=== PATIENT | female | born 2000 | race Caucasian/White ===

== ENCOUNTER 2024-01-01 14:17 | Emergency (ER) | payer BC ==
[2024-01-01] MEDS ORDERED: NA CHLORIDE 0.9% 1,000 ML ONE (14:49)
[2024-01-01 14:56] LABS: Absolute Eosinophils 0.2 K/uL (0-0.5); Absolute Lymphocytes (CBC) 1.7 K/uL (0.7-4.9); Absolute Monocytes 0.6 K/uL (0.1-1.3); Absolute Neutrophil 4.4 K/uL (1.8-8.0); Basophils % 0.7 % (0-1.3); Eosinophils % 2.5 % (0-4.4); Hematocrit 34.2 % (36.0-45.0); Hemoglobin 11.3 g/dL (12.0-15.0); Lymphocytes % 24.3 % (15.3-44.8); MCH 29.4 pg (27.0-35.0); MPV 8.2 fL (7.6-11.3); Monocytes % 9.2 % (3.3-12.3); Neutrophils % 63.3 % (41.7-73.7); Nucleated Red Blood Cells % 0.1 % (0-0); Platelets 286 thou/uL (152-406); RBC Red Blood Cell Count 3.85 M/uL (3.86-4.86); Red Cell Distribution Width 13.9 % (12.1-15.2)
--- NOTE | 2024-01-01 15:26 | RAD REPORT ---
EXAM DESCRIPTION: RAD - Chest Single View - 01/01/2024 3:18 pm CLINICAL HISTORY: CHEST PAIN Chest pain. COMPARISON: <Comparisons> FINDINGS: Portable technique limits examination quality. The lungs are grossly clear. The heart is normal in size. No displaced fractures. IMPRESSION: No acute intrathoracic process suspected.
[2024-01-01 15:36] LABS: ALT/SGPT 19 U/L (13-56); Albumin 3.8 g/dL (3.4-5.0); Alkaline Phosphatase 57 U/L (45-117); Anion Gap 7.7 mEq/L (5.0-15.0); BUN Blood Urea Nitrogen 13 mg/dL (7-18); Bicarbonate 26 mEq/L (21-32); Bilirubin Total 0.4 mg/dL (0.2-1.0); Globulin 3.7 g/dL (2.3-3.5); Glomerular Filtration Rate 123 ml/min (=/>90); Glucose Level 95 mg/dL (74-106); Magnesium 1.8 mg/dL (1.6-2.4); Potassium 3.7 mEq/L (3.5-5.1); Protein, Total 7.5 g/dL (6.4-8.2); Sodium Level 138 mEq/L (136-145); Troponin High Sensitivity 3.6 pg/mL (<58.9)
[2024-01-01 15:38] LABS: AST/SGOT < 10 U/L (15-37); Bilirubin Direct < 0.2 mg/dL (0-0.2); Bilirubin Indirect, Calculated 0.2 mg/dL (0.2-0.8)
--- NOTE | 2024-01-01 16:08 | EDPHYS ---
Physician Documentation [facility] Name: Denise Apodaca Age: 23 yrs Sex: Female : 2000 Arrival Date: 01/01/2024 Time: 14:17 Bed 18 Private MD: ED Physician Mark Castellon HPI: 12/31 15:12 This 23 yrs old Female presents to ER via EMS with complaints of Palpitations, rt Dizziness. 15:12 Patient presents to the ED with palpitations starting yesterday. She does have a rt history of POTS. Patient had chest pain since yesterday as well. She called EMS, she apparently had a syncopal event in the back of the ambulance. No reported head trauma. Reports that the symptoms continued, denies other acute complaints at this time, symptoms are moderate in severity, no other aggravating or elevating factors.. 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 - Infectious Disease History:: Denies. - Social history:: Smoking status: Patient reports the use of cigarette tobacco products, denies chronic smoking, but will smoke occasionally. - Family history:: not pertinent. ROS: 15:12 Constitutional: Negative for fever, chills, and weight loss, Respiratory: Negative for rt shortness of breath, cough, wheezing, and pleuritic chest pain, Abdomen/GI: Negative for abdominal pain, nausea, vomiting, diarrhea, and constipation, MS/Extremity: Negative for injury and deformity, Skin: Negative for injury, rash, and discoloration, 15:12 Cardiovascular: Positive for chest pain, palpitations, 15:12 Neuro: Positive for dizziness, syncope, Exam: 15:12 Constitutional: This is a well developed, well nourished patient who is awake, alert, rt and in no acute distress. Head/Face: Normocephalic, atraumatic. Chest/axilla: Normal chest wall appearance and motion. Nontender with no deformity. No lesions are appreciated. Cardiovascular: Regular rate and rhythm with a normal S1 and S2. No gallops, murmurs, or rubs. Normal PMI, no JVD. No pulse deficits. Respiratory: Lungs have equal breath sounds bilaterally, clear to auscultation and percussion. No rales, rhonchi or wheezes noted. No increased work of breathing, no retractions or nasal flaring. Abdomen/GI: Soft, non-tender, with normal bowel sounds. No distension or tympany. No guarding or rebound. No evidence of tenderness throughout. Skin: Warm, dry with normal turgor. Normal color with no rashes, no lesions, and no evidence of cellulitis. MS/ Extremity: Pulses equal, no cyanosis. Neurovascular intact. Full, normal range of motion. Neuro: Awake and alert, GCS 15, oriented to person, place, time, and situation. Cranial nerves II-XII grossly intact. Motor strength 5/5 in all extremities. Sensory grossly intact. Cerebellar exam normal. Normal gait. 15:12 ECG was reviewed by the Attending Physician. Vital Signs: 14:20 BP 104 / 76; Pulse 81; Resp 16; Temp 97.9; Pulse Ox 100% ; Weight 43.09 kg; Height 5 me1 ft. 3 in. ; Pain 0/10; 14:20 Body Mass Index 16.83 (43.09 kg, 160.02 cm) me1 14:20 Pain Scale: Adult me1 MDM: 14:25 Patient medically screened. rt 16:08 Differential diagnosis: POTS, dysrhythmia, electrolyte disturbance. Data reviewed: rt vital signs, nurses notes, lab test result(s), EKG, radiologic studies. Consideration of Admission/Observation Escalation of care including admission/observation considered. Stable vital signs, labs are benign, EKG is unremarkable, no indications for admission at this time.. I considered the following discharge prescriptions or medication management in the emergency department Medications were administered in the Emergency Department. See MAR. Independent interpretation of the following test(s) in the Emergency Department X-Ray: My interpretation is No pneumonia seen on interpretation of x-ray images. Test considered but Not performed: CT: PE RC negative, low suspicion for pulmonary embolus, CT angiogram not decayed. Care significantly affected by the following chronic conditions: POTS. Counseling: I had a detailed discussion with the patient and/or guardian regarding the historical points, exam findings, and any diagnostic results supporting the discharge/admit diagnosis, lab results, radiology results, the need for outpatient follow up, to return to the emergency department if symptoms worsen or persist or if there are any questions or concerns that arise at home. Response to treatment: the patient's symptoms have markedly improved after treatment. 12/31 14:33 Order name: Basic Metabolic Panel; Complete Time: 15:44 rt 12/31 14:33 Order name: CBC with Diff; Complete Time: 15:26 rt 12/31 14:33 Order name: LFT's; Complete Time: 15:44 rt 12/31 14:33 Order name: Magnesium; Complete Time: 15:44 rt 12/31 14:33 Order name: Troponin HS; Complete Time: 15:44 rt 12/31 14:33 Order name: TSH; Complete Time: 15:44 rt 12/31 14:33 Order name: XRAY Chest (1 view); Complete Time: 15:26 rt 12/31 14:33 Order name: EKG; Complete Time: 14:34 rt 12/31 14:33 Order name: Cardiac monitoring; Complete Time: 16:19 rt 12/31 14:33 Order name: EKG - Nurse/Tech rt 12/31 14:33 Order name: IV Saline Lock; Complete Time: 14:50 rt 12/31 14:33 Order name: Labs collected and sent; Complete Time: 14:50 rt 12/31 14:33 Order name: O2 Per Protocol; Complete Time: 14:50 rt 12/31 14:33 Order name: O2 Sat Monitoring; Complete Time: 14:50 rt EC:12 Rate is 76 beats/min. Rhythm is regular, Normal Sinus Rhythm with No ectopy. QRS [place] rt is Normal. [place] interval is normal. QRS interval is normal. QT interval is normal. No Q waves. T waves are Normal. No ST changes noted. Administered Medications: 14:57 Drug: NS 0.9% IV 1000 ml IV at 1 bolus Per protocol; 1000 mL bolus may finish EMS bag me1 Route: IV; Rate: 1 bolus; Site: right antecubital; Disposition Summary: 01/01/24 16:07 Discharge Ordered Notes: Location: Home rt Problem: new rt Symptoms: have improved rt Condition: Stable rt Diagnosis - Chest pain, unspecified rt - Palpitations rt - Syncope rt Followup: rt - With: Janes Reddy MD - When: 2 - 3 days - Reason: Discharge Instructions: - Discharge Summary Sheet rt - Nonspecific Chest Pain, Adult rt - Palpitations rt Forms: - Medication Reconciliation Form rt - Antibiotic Education rt - Prescription Opioid Use rt - Patient Portal Instructions rt - Leadership Thank You Letter rt Signatures: Dispatcher [employer] Mark Avitia MD MD rt Taylor Valentin, RN RN me1
--- NOTE | 2024-01-01 16:08 | ER ---
Nurse's Notes [facility] Name: Denise Apodaca Age: 23 yrs Sex: Female : 2000 Arrival Date: 01/01/2024 Time: 14:17 Bed 18 Private MD: Diagnosis: Chest pain, unspecified;Palpitations;Syncope Presentation: 12/31 14:20 Chief complaint: EMS states: toned out for palpitations. c/o dizziness and near me1 syncopal episode in ambulance on the way. 20g LAC with about 200 ml of NS administered. Hypotensive with SBP in 90s. improved to 106/69. Coronavirus screen: Vaccine status: Patient reports being unvaccinated. Ebola Screen: No symptoms or risks identified at this time. Initial Sepsis Screen: Does the patient meet any 2 criteria? No. Patient's initial sepsis screen is negative. Does the patient have a suspected source of infection? No. Patient's initial sepsis screen is negative. Risk Assessment: Do you want to hurt yourself or someone else? Patient reports no desire to harm self or others. Onset of symptoms was January 01, 2024. Care prior to arrival: Medication(s) given: Normal saline infusion, 200 ml IV initiated. 20 GA, in the right antecubital area. 14:20 Method Of Arrival: EMS [facility] [place] [place] 14:20 Acuity: WILLIS 3 me1 Triage Assessment: 14:23 General: Appears comfortable, unkempt, well developed, well nourished, Behavior is me1 calm, cooperative, appropriate for age, Reports c/o palpitations, dizziness, near syncope. Pain: Denies pain. EENT: No signs and/or symptoms were reported regarding the EENT system. Neuro: Level of Consciousness is awake, alert, obeys commands, Oriented to person, place, time, situation, Appropriate for age. Neuro: Reports dizziness, a syncopal episode. Cardiovascular: Patient's skin is warm and dry. Cardiovascular: Reports palpitations. Respiratory: Airway is patent Respiratory effort is even, unlabored, Respiratory pattern is regular, symmetrical. GI: No signs and/or symptoms were reported involving the gastrointestinal system. : No signs and/or symptoms were reported regarding the genitourinary system. Derm: Skin is intact, is healthy with good turgor, Skin is pink, warm \T\ dry. Musculoskeletal: No signs and/or symptoms reported regarding the musculoskeletal system. 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 - Infectious Disease History:: Denies. - Social history:: Smoking status: Patient reports the use of cigarette tobacco products, denies chronic smoking, but will smoke occasionally. - Family history:: not pertinent. Screenin:26 [facility] ED Fall Risk Assessment (Adult) History of falling in the last 3 months, me1 including since admission No falls in past 3 months (0 pts) Confusion or Disorientation No (0 pts) Intoxicated or Sedated No (0 pts) Impaired Gait Yes (1 pt) Mobility Assist Device Used Yes (1 pt) Altered Elimination No (0 pt) Score/Fall Risk Level 0 - 2 = Low Risk Maintained a safe environment, Provided non-skid footwear, Hourly rounding (assess needs \T\ fall precautionary measures) done. Abuse screen: Denies threats or abuse. Nutritional screening: No deficits noted. Tuberculosis screening: No symptoms or risk factors identified. Assessment: 14:26 General: See triage assessment. . me1 Vital Signs: 14:20 BP 104 / 76; Pulse 81; Resp 16; Temp 97.9; Pulse Ox 100% ; Weight 43.09 kg; Height 5 me1 ft. 3 in. ; Pain 0/10; 14:20 Body Mass Index 16.83 (43.09 kg, 160.02 cm) me1 14:20 Pain Scale: Adult mo1 ED Course: 14:20 Patient arrived in ED. me1 14:20 Mark Castellon MD is Attending Physician. rt 14:23 Triage completed. me1 14:23 Arm band placed on Patient placed in an exam room. me1 14:26 Patient has correct armband on for positive identification. Bed in low position. Call mo1 light in reach. Side rails up X2. Provided Education on: POC. Verbalized understanding. Client placed on continuous cardiac and pulse oximetry monitoring. NIBP monitoring applied. Pulse ox on. NIBP on. 14:26 No provider procedures requiring assistance completed. Maintain EMS IV. Dressing me1 intact. Good blood return noted. Site clean \T\ dry. Gauge \T\ site: 20g LAC. Flushed with 10 mL NS. 14:44 Taylor Valentin, RN is Primary Nurse. me1 14:50 Basic Metabolic Panel Sent. me1 14:50 CBC with Diff Sent. me1 14:50 LFT's Sent. me1 14:50 Magnesium Sent. me1 14:50 Troponin HS Sent. me1 14:50 TSH Sent. me1 15:20 XRAY Chest (1 view) In Process Unspecified. EDMS 16:06 Janes Reddy MD is Referral Physician. rt 16:20 IV discontinued, intact, bleeding controlled, No redness/swelling at site. Pressure ap3 dressing applied. Administered Medications: 14:57 Drug: NS 0.9% IV 1000 ml IV at 1 bolus Per protocol; 1000 mL bolus may finish EMS bag me1 Route: IV; Rate: 1 bolus; Site: right antecubital; Medication: 14:26 VIS not applicable for this client. me1 Outcome: 16:07 Discharge ordered by . rt 16:19 Discharged to home ambulatory, ap3 16:19 Condition: good 16:19 Discharge instructions given to patient, Instructed on discharge instructions, follow up and referral plans. Demonstrated understanding of instructions, follow-up care, 16:20 Patient left the ED. ap3 Signatures: Dispatcher [employer] [facility] Candie Bryant RN RN ap3 Mark Castellon MD MD rt Taylor Valentin, MARTIN RN me1
[2024-01-01 16:51] VITALS: BP 104/76; TEMP 97.9; O2SAT 100
--- NOTE | 2024-01-02 13:54 | EKG ---
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
== END 2024-01-01 16:20 | disposition home or self-care (01) ==
LOC: ER 14:17
DX: R07.9 Chest pain, unspecified (principal); R00.2 Palpitations; R55 Syncope and collapse; F17.210 Nicotine dependence, cigarettes, uncomplicated
CPT/HCPCS: 93005; 85025; 80048; 36415; 83735; 80076; 84443; 84484; 71045; 99284; J7030

== ENCOUNTER 2024-08-16 22:51 | Emergency (ER) | payer BC ==
--- NOTE | 2024-08-16 23:25 | EDPHYS ---
Physician Documentation [facility] Name: Denise Apodaca Age: 23 yrs Sex: Female : 2000 Arrival Date: 08/16/2024 Time: 22:51 Bed 12 Private MD: ED Physician Sean Vargas HPI: 08/16 23:50 This 23 yrs old Female presents to ER via EMS with complaints of Asthma Exacerbation. kb 23:50 Pt is a 23 year old female who presents for wheezing that started at 2136 this evening. kb States she has had breathing episodes like this before but hasn't officially been diagnosed with asthma. States she ran out of her inhaler so she called 911. EMS reports audible "forced" wheezing upon their arrival with O2 sat of 99% on room air. Neb given in route which relieved pt's symptoms. . 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 - Infectious Disease History:: Denies. - Social history:: Smoking status: Reported history of juuling and/or vaping. ROS: 22:57 Constitutional: As per HPI kb Exam: 23:50 Constitutional: This is a well developed, well nourished patient who is awake, alert, kb and in no acute distress. Head/Face: Normocephalic, atraumatic. ENT: Moist Mucous membranes Cardiovascular: Regular rate Respiratory: Respirations even and unlabored. No increased work of breathing. Talking in full sentences Skin: Warm, dry with normal turgor. Normal color. MS/ Extremity: Pulses equal, no cyanosis. Neurovascular intact. Full, normal range of motion. Neuro: Awake and alert, GCS 15, oriented to person, place, time, and situation. Vital Signs: 22:54 BP 116 / 70; Pulse 85; Resp 16; Temp 98; Pulse Ox 100% ; Weight 43.09 kg; Height 5 ft. me1 3 in. ; Pain 0/10; 23:40 BP 107 / 68; Pulse 82; Resp 14; Temp 98.1; Pulse Ox 100% ; me1 22:54 Body Mass Index 16.83 (43.09 kg, 160.02 cm) me1 22:54 Pain Scale: Adult me1 MDM: 22:56 Medical Screening Exam initiated kb 23:50 Data reviewed: vital signs, nurses notes. kb 23:52 Differential diagnosis: acute asthma, reactive airway, URI. Test considered but Not kb performed: X-ray: CXR considered but lungs clear bilaterally, resp even and unlabored, oxygen 100% on room air. Historians other than the Patient: EMS: [facility]. Counseling: I had a detailed discussion with the patient and/or guardian regarding the historical points, exam findings, and any diagnostic results supporting the discharge/admit diagnosis, the need for outpatient follow up, a family practitioner, to return to the emergency department if symptoms worsen or persist or if there are any questions or concerns that arise at home. Administered Medications: No medications were administered Disposition: 08/17 05:19 Co-signature as Attending Physician, Sean Vargas MD I agree with the assessment sp4 and plan of care. I reviewed the patient's care provided by the Advanced Practice Provider and agree with the diagnosis and treatment plan. Disposition Summary: 08/16/24 23:24 Discharge Ordered Notes: Location: Home kb Condition: Stable kb Diagnosis - Dyspnea, unspecified kb Followup: kb - With: Private Physician - When: 2 - 3 days - Reason: Recheck today's complaints, Continuance of care, Re-evaluation by your physician Followup: kb - With: Emergency Department - When: As needed - Reason: Worsening of condition Discharge Instructions: - Discharge Summary Sheet kb - Asthma, Adult, [id number] kb Forms: - Medication Reconciliation Form kb - Antibiotic Education kb - Prescription Opioid Use kb - Patient Portal Instructions kb - Leadership Thank You Letter kb Prescriptions: - albuterol sulfate 90 mcg/actuation Inhalation HFA Aerosol Inhaler - inhale 2 puff INHALATION route every 4-6 hours As needed; 1 Unspecified; kb Refills: 0, Product Selection Permitted Signatures: Kathleen Worthy FNP-C FNP-Ckb Lewis, Kimberly, RN RN kl Potepalov, Sergey, MD MD sp4 Taylor Valentin RN RN me1 Corrections: (The following items were deleted from the chart) 08/16 23:43 23:00 Immunization history: Adult Immunizations up to date, rasheed christopher 23:43 23:00 Infectious Disease History: Denies. rasheed christopher 23:52 23:50 Pt is a 23 year old female who presents for wheezing that started at 2136 this kb evening. States she has had breathing episodes like this before but hasn't officially been diagnosed with asthma. States she ran out of her inhaler so she called 911. EMS reports audible "forced" wheezing upon their arrival with O2 sat of 99% on room air. NS neb given in route which relieved pt's symptoms. . kb
--- NOTE | 2024-08-16 23:25 | ER ---
Nurse's Notes [facility] Name: Denise Apodaca Age: 23 yrs Sex: Female : 2000 Arrival Date: 08/16/2024 Time: 22:51 Bed 12 Private MD: Diagnosis: Dyspnea, unspecified Presentation: 08/16 22:54 Chief complaint: EMS states: toned out for asthma attack. Room air sat 99%. NS [facility] [place] me1 given by EMS. Coronavirus screen: Vaccine status: Patient reports being unvaccinated. Ebola Screen: No symptoms or risks identified at this time. Initial Sepsis Screen: Does the patient meet any 2 criteria? No. Patient's initial sepsis screen is negative. Does the patient have a suspected source of infection? No. Patient's initial sepsis screen is negative. Risk Assessment: Do you want to hurt yourself or someone else? Patient reports no desire to harm self or others. Onset of symptoms was August 16, 2024 at 21:36. Care prior to arrival: Medication(s) given: Normal saline infusion, [facility] [place]. 22:54 Method Of Arrival: EMS: [facility] me1 22:54 Acuity: WILLIS 5 me1 Triage Assessment: 23:01 General: Appears in no apparent distress. slender, unkempt, well developed, Behavior is me1 calm, cooperative, appropriate for age. Pain: Denies pain. EENT: No signs and/or symptoms were reported regarding the EENT system. Neuro: Level of Consciousness is awake, alert, obeys commands, Oriented to person, place, time, situation, Appropriate for age. Cardiovascular: Patient's skin is warm and dry. Respiratory: Reports shortness of breath at rest on exertion Airway is patent Respiratory effort is even, unlabored, Respiratory pattern is regular, symmetrical. GI: No signs and/or symptoms were reported involving the gastrointestinal system. : No signs and/or symptoms were reported regarding the genitourinary system. Derm: Skin is intact, is healthy with good turgor, Skin is pink, warm \T\ dry. Musculoskeletal: No signs and/or symptoms reported regarding the musculoskeletal system. 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 - Infectious Disease History:: Denies. - Social history:: Smoking status: Reported history of juuling and/or vaping. Screenin:02 [facility] ED Fall Risk Assessment (Adult) History of falling in the last 3 months, me1 including since admission No falls in past 3 months (0 pts) Confusion or Disorientation No (0 pts) Intoxicated or Sedated No (0 pts) Impaired Gait No (0 pts) Mobility Assist Device Used No (0 pt) Altered Elimination No (0 pt) Score/Fall Risk Level 0 - 2 = Low Risk Maintained a safe environment, Provided non-skid footwear, Hourly rounding (assess needs \T\ fall precautionary measures) done. Nutritional screening: No deficits noted. Tuberculosis screening: No symptoms or risk factors identified. 23:03 Abuse screen: Denies threats or abuse. me1 Assessment: 23:02 General: See triage assessment. me1 Vital Signs: 22:54 BP 116 / 70; Pulse 85; Resp 16; Temp 98; Pulse Ox 100% ; Weight 43.09 kg; Height 5 ft. me1 3 in. ; Pain 0/10; 23:40 BP 107 / 68; Pulse 82; Resp 14; Temp 98.1; Pulse Ox 100% ; me1 22:54 Body Mass Index 16.83 (43.09 kg, 160.02 cm) me1 22:54 Pain Scale: Adult ct1 ED Course: 22:54 Patient arrived in ED. rv1 22:56 Kathleen Worthy FNP-C [facility]. kb 22:56 Sean Vargas MD is Attending Physician. kb 23:00 Triage completed. me1 23:00 Arm band placed on Patient placed in an exam room. me1 23:02 Patient has correct armband on for positive identification. Bed in low position. Call ct1 light in reach. Side rails up X2. Provided Education on: POC. Verbalized understanding.. Client placed on continuous cardiac and pulse oximetry monitoring. NIBP monitoring applied. Pulse ox on. NIBP on. 23:02 No provider procedures requiring assistance completed. me1 23:36 Patient did not have IV access during this emergency room visit. me1 Administered Medications: No medications were administered Medication: 23:02 VIS not applicable for this client. [facility] Outcome: 23:24 Discharge ordered by . randall 23:39 Patient left the ED. me1 23:39 Discharged to home ambulatory, with significant other, 23:39 Condition: stable 23:39 Discharge instructions given to patient, significant other, Instructed on discharge instructions, follow up and referral plans. medication usage, Demonstrated understanding of instructions, follow-up care, medications, Prescriptions given X 1, Signatures: Kathleen Worthy, T[employer] CAR CLE[employer]ER-C T[employer] CLE[employer]ER-Irasema Salcedo, RN RN Mariel Chong Taylor Garrett RN RN [facility] Corrections: (The following items were deleted from the chart) :42 22:54 Chief complaint: EMS states: toned out for asthma attack. Room air sat 99%. NS me1 neb tx given by EMS. : 22:54 Coronavirus screen: Vaccine status: Patient reports being unvaccinated. [facility] : 22:54 Ebola Screen: No symptoms or risks identified at this time. [facility] :42 22:54 Initial Sepsis Screen: Does the patient meet any 2 criteria? No. Patient's [facility] initial sepsis screen is negative. Does the patient have a suspected source of infection? No. Patient's initial sepsis screen is negative. : 22:54 Risk Assessment: Do you want to hurt yourself or someone else? Patient reports no [facility] desire to harm self or others. :42 22:54 Onset of symptoms was August 16, 2024 at 21:36 [facility] : 22:54 Care prior to arrival: Medication(s) given: Normal saline infusion, [facility] [place] [facility] :42 22:54 Method Of Arrival: EMS: [facility] 23:42 22:54 BP 116 / 70; Pulse 85bpm; Resp 16bpm; Pulse Ox 100%; Temp 98F; 43.09 kg; Height 5 [facility] ft. 3 in.; BMI: 16.8; Pain 0/10, Adult; :42 22:54 Acuity: WILLIS 5 [facility] 43 23:00 Immunization history: Adult Immunizations up to date, [facility] 43 23:00 Infectious Disease History: Denies. [facility] 23:44 23:00 LMP N/A - Irregular menses, Not [facility] 23:40 BP 107 / 68; Pulse 82bpm; Resp 14bpm; Pulse Ox 100%; Temp 98.1F; [facility] 23:01 General: Appears in no apparent distress. slender, unkempt, well developed, [facility] Behavior is calm, cooperative, appropriate for age, 23: Pain: Denies pain. [facility] 23: EENT: No signs and/or symptoms were reported regarding the EENT system. [facility] 23: Neuro: Level of Consciousness is awake, alert, obeys commands, Oriented to [facility] person, place, time, situation, Appropriate for age 23: Cardiovascular: Patient's skin is warm and dry. [facility] 23: Respiratory: Reports shortness of breath at rest on exertion Airway is patent [facility] Respiratory effort is even, unlabored, Respiratory pattern is regular, symmetrical, 23: GI: No signs and/or symptoms were reported involving the gastrointestinal system. [facility] 23: : No signs and/or symptoms were reported regarding the genitourinary system. [facility] 23: Derm: Skin is intact, is healthy with good turgor, Skin is pink, warm \T\ dry. [facility] 23: Musculoskeletal: No signs and/or symptoms reported regarding the musculoskeletal [facility] system. 23: VIS not applicable for this client. [facility] 23:00 Arm band placed on Patient placed in an exam room, [facility] 23: Patient has correct armband on for positive identification. Bed in low position. ct1 Call light in reach. Side rails up X2. 23: Provided Education on: POC. Verbalized understanding.. [facility] 23: Client placed on continuous cardiac and pulse oximetry monitoring. NIBP [facility] monitoring applied. Pulse ox on. NIBP on. 23: General: See triage assessment. [facility] 23: [facility] Fall Risk Assessment (Adult) History of falling in the last 3 months, me1 including since admission No falls in past 3 months (0 pts) Confusion or Disorientation No (0 pts) Intoxicated or Sedated No (0 pts) Impaired Gait No (0 pts) Mobility Assist Device Used No (0 pt) Altered Elimination No (0 pt) Score/Fall Risk Level 0 - 2 = Low Risk Maintained a safe environment, Provided non-skid footwear, Hourly rounding (assess needs \T\ fall precautionary measures) done, :45 23:02 Abuse screen: Denies threats or abuse. [facility] :45 23:02 Nutritional screening: No deficits noted. [facility] :45 23:02 Tuberculosis screening: No symptoms or risk factors identified. [facility] :46 23:00 Triage completed. [facility] :46 23:02 No provider procedures requiring assistance completed. [facility] 23:46 23:39 Patient did not have IV access during this emergency room visit. [facility] :46 23:39 Discharged to home ambulatory, with significant other, [facility] :46 23:39 Condition: stable [facility] :46 23:39 Discharge instructions given to patient, significant other, Instructed on [facility] discharge instructions, follow up and referral plans. medication usage, Demonstrated understanding of instructions, follow-up care, medications, Prescriptions given X 1, 23:46 23:39 Patient left the ED. [facility]
[2024-08-17 00:53] VITALS: BP 116/70; TEMP 98; O2SAT 100
== END 2024-08-16 23:39 | disposition home or self-care (01) ==
LOC: ER 22:51
DX: R06.00 Dyspnea, unspecified (principal); R06.2 Wheezing
CPT/HCPCS: 99284